=== PATIENT | male | born 1940 | race Caucasian/White ===

== ENCOUNTER 2019-12-25 12:18 | Outpatient (CLI) | payer OTHER ==
[~2019-12-25 12:18] MED LIST: CIPRO500 MG PO; NEXIUM2.5 MG; PERCOCET 5-3251 EACH PO; TAMS0.4C
== END 2019-12-25 12:29 | disposition home or self-care (01) ==
LOC: TOM 12:18
PROVIDERS: ATTEND Urology
DX: N40.1 Benign prostatic hyperplasia with lower urinary tract symptoms (principal); N20.0 Calculus of kidney; R33.8 Other retention of urine

== ENCOUNTER 2020-01-08 11:01 | Outpatient (CLI) | payer OTHER | END 2020-01-08 11:25 | disposition home or self-care (01) | LOC: SONOGRAMA 11:01 → MAMO-SONO 14:45 | PROVIDERS: ATTEND Urology | DX: N30.00 Acute cystitis without hematuria (principal); R31.1 Benign essential microscopic hematuria ==

== ENCOUNTER 2020-06-24 12:38 | Outpatient (CLI) | payer OTHER | END 2020-06-24 12:44 | disposition home or self-care (01) | LOC: RAD 12:38 | PROVIDERS: ATTEND General Practice | DX: M54.5 Low back pain (principal); M51.36 Other intervertebral disc degeneration, lumbar region ==

== ENCOUNTER 2020-07-08 10:00 | Outpatient (CLI) | payer OTHER | END 2020-07-08 10:11 | disposition home or self-care (01) | LOC: MRI 10:00 | PROVIDERS: ATTEND General Practice | DX: M51.36 Other intervertebral disc degeneration, lumbar region (principal); M54.5 Low back pain | CPT/HCPCS: 72148 ==

== ENCOUNTER → 2020-08-15 | Outpatient (CLI) | payer OTHER | END | disposition home or self-care (01) | LOC: MAMO-SONO 10:45 → SONOGRAMA 10:51 | PROVIDERS: ATTEND Urology | DX: N40.1 Benign prostatic hyperplasia with lower urinary tract symptoms (principal); R33.8 Other retention of urine; N20.1 Calculus of ureter ==

== ENCOUNTER → 2020-09-12 | Outpatient (CLI) | payer OTHER | END | disposition home or self-care (01) | LOC: TOM 08:00 | PROVIDERS: ATTEND Urology | DX: N40.1 Benign prostatic hyperplasia with lower urinary tract symptoms (principal); R33.8 Other retention of urine | CPT/HCPCS: 74177; Q9965 ==

== ENCOUNTER → 2020-10-24 08:58 | Outpatient (CLI) | payer OTHER | END | disposition home or self-care (01) | LOC: EKG 08:58 | PROVIDERS: ATTEND General Practice | DX: Z01.810 Encounter for preprocedural cardiovascular examination (principal); E11.65 Type 2 diabetes mellitus with hyperglycemia; E29.1 Testicular hypofunction; M85.80 Other specified disorders of bone density and structure, unspecified site; E55.9 Vitamin D deficiency, unspecified; K21.9 Gastro-esophageal reflux disease without esophagitis; E66.8 Other obesity; E21.0 Primary hyperparathyroidism; G31.84 Mild cognitive impairment of uncertain or unknown etiology; M54.5 Low back pain; M51.36 Other intervertebral disc degeneration, lumbar region; K57.30 Diverticulosis of large intestine without perforation or abscess without bleeding; Z87.442 Personal history of urinary calculi; N28.1 Cyst of kidney, acquired; N13.30 Unspecified hydronephrosis; R97.8 Other abnormal tumor markers ==

== ENCOUNTER 2021-10-23 09:50 | Outpatient (CLI) | payer OTHER | END 2021-10-23 09:52 | disposition home or self-care (01) | LOC: TOM 09:50 | PROVIDERS: ATTEND Urology | DX: N36.1 Urethral diverticulum (principal); R33.9 Retention of urine, unspecified; N13.1 Hydronephrosis with ureteral stricture, not elsewhere classified; N40.1 Benign prostatic hyperplasia with lower urinary tract symptoms | CPT/HCPCS: 74178; 76856; Q9965 ==

== ENCOUNTER 2022-02-16 11:50 | Outpatient (CLI) | payer OTHER ==
[~2022-02-16 11:50] MED LIST changes: +JANUVIA25 MG PO; +ROCALTROL0.25 MCG PO
== END 2022-02-16 11:51 | disposition home or self-care (01) ==
LOC: LAB 11:50
PROVIDERS: ATTEND General Practice
DX: I11.9 Hypertensive heart disease without heart failure (principal); E78.00 Pure hypercholesterolemia, unspecified; E03.8 Other specified hypothyroidism; E55.9 Vitamin D deficiency, unspecified; D64.9 Anemia, unspecified; R73.09 Other abnormal glucose; Z12.11 Encounter for screening for malignant neoplasm of colon; N40.0 Benign prostatic hyperplasia without lower urinary tract symptoms

== ENCOUNTER 2022-02-18 09:42 | Day surgery (SDC) | payer OTHER ==
[~2022-02-18] VITALS: Ht 172.7 cm; Wt 83.9 kg
[2022-02-18] MEDS ORDERED: ULTRAM50 MG PO (13:48)
[2022-02-18] MEDS ORDERED: MIRALAX17 GM PO (13:48)
[2022-02-18] MEDS ORDERED: KETO10TA2 PO (13:48)
[2022-02-18] MEDS ORDERED: TYLENOL ARTHRI650 MG PO (13:48)
== END 2022-02-18 19:25 | disposition home or self-care (01) ==
LOC: CIR.AMB 09:42
PROVIDERS: ATTEND Surgery
DX: K40.90 Unilateral inguinal hernia, without obstruction or gangrene, not specified as recurrent (principal); K42.9 Umbilical hernia without obstruction or gangrene; Z20.822 Contact with and (suspected) exposure to COVID-19; Z88.0 Allergy status to penicillin; Z99.89 Dependence on other enabling machines and devices; G47.33 Obstructive sleep apnea (adult) (pediatric); K21.9 Gastro-esophageal reflux disease without esophagitis
CPT/HCPCS: 49650; 49652; C1781

== ENCOUNTER 2023-01-19 09:53 | Outpatient (CLI) | payer OTHER ==
[~2023-01-19 09:53] MED LIST changes: +KETO10TA2 PO; +MIRALAX17 GM PO; +TYLENOL ARTHRI650 MG PO; +ULTRAM50 MG PO
== END 2023-01-19 10:01 | disposition home or self-care (01) ==
LOC: RAD 09:53
DX: Z88.0 Allergy status to penicillin (principal)

== ENCOUNTER 2023-04-11 11:56 | Outpatient (CLI) | payer OTHER | END 2023-04-11 12:02 | disposition home or self-care (01) | LOC: SONOGRAMA 11:56 | DX: N18.2 Chronic kidney disease, stage 2 (mild) (principal) ==

== ENCOUNTER 2023-11-25 11:09 | Outpatient (CLI) | payer OTHER | END 2023-11-25 11:14 | disposition home or self-care (01) | LOC: TOM 11:09 | PROVIDERS: ATTEND Urology | DX: N20.0 Calculus of kidney (principal) ==

== ENCOUNTER 2024-11-27 12:42 | Outpatient (CLI) | payer OTHER | END 2024-11-27 12:45 | disposition home or self-care (01) | LOC: RAD 12:42 | PROVIDERS: ATTEND General Practice | DX: M79.642 Pain in left hand (principal); R22.32 Localized swelling, mass and lump, left upper limb ==

== ENCOUNTER 2025-01-01 10:18 | Outpatient (CLI) | payer OTHER | END 2025-01-01 10:20 | disposition home or self-care (01) | LOC: RAD 10:18 | PROVIDERS: ATTEND General Practice | DX: M70.21 Olecranon bursitis, right elbow (principal) ==

== ENCOUNTER 2025-01-21 13:15 | Outpatient (CLI) | payer OTHER | END 2025-01-21 13:16 | disposition home or self-care (01) | LOC: NUCLEAR 13:15 | PROVIDERS: ATTEND Orthopaedic Surgery | DX: M81.0 Age-related osteoporosis without current pathological fracture (principal) ==

== ENCOUNTER → 2025-02-08 10:51 | Outpatient (CLI) | payer OTHER ==
[2025-02-08 11:39] LABS: URINE APPEARANCE Clear; URINE BILIRRUBIN Negative (NEGATIVE); URINE BLOOD Negative; URINE COLOR Yellow; URINE GLUCOSE Negative (NEGATIVE); URINE KETONE Negative (NEGATIVE); URINE LEUKOCYTE Negative; URINE NITRATE Negative; URINE PROTEIN Negative (NEGATIVE); URINE UROBILINOGEN 0.2 E.U./dl
[2025-02-08 11:43] LABS: URINE RBC 4.5 uL (0.0-20.8); URINE WBC 5.8 uL (0.0-23.2)
[2025-02-08 11:45] LABS: URINE BACTERIA 2.3 uL (0.0-1933); URINE CAST 0.00 uL (0.0-1.40); URINE EPITHELIAL CELLS 0.3 uL (0.0-38.8)
[2025-02-08 13:17] LABS: BASO % 0.8 % (0.1-1.2); EOS # 0.07 (0.04-0.54); EOS % 1.1 % (0.7-7.0); LYMPH # 1.22 (1.18-3.74); LYMPH % 19.3 % (19.3-53.1); MEAN PLATELET VOLUME 10.00 fl (9.4-12.4); MONO # 0.56 (0.24-0.82); MONO % 8.9 % (4.7-12.5); NEUT # 4.40 (1.56-6.13); NEUT % 69.7 % (34.0-71.1); RED CELL DISTRIBUTION WIDTH 12.7 % (11.6-14.4)
[2025-02-08 13:58] LABS: ALT/SGPT 27 U/L (12-78); AST/SGOT 17 U/L (15-37); BILIRUBIN TOTAL 0.97 mg/dL (0.3-1.2); BUN CREA RATIO 14 (7.0-25.0); CHOL HDL RATIO 2.0 (0-5.0); CREATININE SERUM 1.24 mg/dL (0.70-1.30); FREE TRIODOTIRONINE 2.42 pg/ml (2.18-3.98); GFR 55.81; GLOBULINA 3.1 G/DL (2.4-3.5); GLUCOSE FASTING 139 mg/dL (65-100); HDL 81 mg/dl (40-60); LDL 69 mg/dl (0-130); OSMOLALITY SERUM 278 MOSM/KG (275-295); T4 TOTAL 6.87 UG/DL (4.5-12.1); TSH 3.120 uIU/mL (0.358-3.74); VLDL 12 (0-39)
[2025-02-08 15:21] LABS: ob NEGATIVE (NEGATIVE)
== END | disposition home or self-care (01) ==
LOC: LAB 10:51
PROVIDERS: ATTEND Orthopaedic Surgery
DX: E55.9 Vitamin D deficiency, unspecified (principal); M85.9 Disorder of bone density and structure, unspecified; E56.1 Deficiency of vitamin K; E21.3 Hyperparathyroidism, unspecified; E88.9 Metabolic disorder, unspecified; M81.8 Other osteoporosis without current pathological fracture; E03.9 Hypothyroidism, unspecified; K27.9 Peptic ulcer, site unspecified, unspecified as acute or chronic, without hemorrhage or perforation; N40.0 Benign prostatic hyperplasia without lower urinary tract symptoms; E11.9 Type 2 diabetes mellitus without complications; D35.1 Benign neoplasm of parathyroid gland